=== PATIENT | male | born 1965 | race Caucasian/White ===

== ENCOUNTER 2021-07-12 03:05 | Emergency (ER) | payer MEDICARE, MEDICAID ==
[~2021-07-12] VITALS: Ht 185.4 cm; Wt 159.0 kg
[~2021-07-12 03:05] MED LIST: MORP30TA60 PO
[2021-07-12] MEDS ORDERED: proparacaine 0.5% ophthalmic drops 15ml EACHEYE ONE (03:30)
[2021-07-12] MEDS ORDERED: ERYT1OIN6 RIGHTEYE (03:45)
[2021-07-12] MEDS ORDERED: erythromycin ophthalmic ointment 1gm tube RIGHTEYE ONE (03:50)
[2021-07-12 04:03] VITALS: BP 159/94
== END 2021-07-12 04:05 | disposition home or self-care (01) ==
LOC: ER 03:05
DX: S05.00XA Injury of conjunctiva and corneal abrasion without foreign body, unspecified eye, initial encounter (principal); G89.29 Other chronic pain; Z88.8 Allergy status to other drugs, medicaments and biological substances; Z88.6 Allergy status to analgesic agent; Z79.2 Long term (current) use of antibiotics; Z79.899 Other long term (current) drug therapy; X37.3XXA Dust storm, initial encounter; Y93.89 Activity, other specified; Y92.89 Other specified places as the place of occurrence of the external cause; Y99.8 Other external cause status
CPT/HCPCS: 99283

== ENCOUNTER 2022-03-03 06:34 | Emergency (ER) | payer MEDICARE, MEDICAID ==
[~2022-03-03] VITALS: Ht 185.4 cm; Wt 159.1 kg
[2022-03-03 06:42] VITALS: BP 184/108
--- NOTE | 2022-03-03 10:15 | NUR ---
no answer to call in lobby
== END 2022-03-03 10:05 | disposition home or self-care (01) ==
LOC: ER 06:34
DX: S63.8X1A Sprain of other part of right wrist and hand, initial encounter (principal); M79.641 Pain in right hand; G89.29 Other chronic pain; Z88.6 Allergy status to analgesic agent; Z88.8 Allergy status to other drugs, medicaments and biological substances; Z79.899 Other long term (current) drug therapy; W19.XXXA Unspecified fall, initial encounter; Y93.89 Activity, other specified; Y92.89 Other specified places as the place of occurrence of the external cause; Y99.8 Other external cause status
CPT/HCPCS: 29125; 73130; 99283